=== PATIENT | male | born 1995 | race American Indian/Alaskan Native ===

== ENCOUNTER 2017-06-28 04:39 | Emergency (ER) | payer OTHER ==
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
[2017-06-28] MEDS: MOTRIN PO ONE (10:06)
[2017-06-28] MEDS: FLEXERIL PO ONE (10:06)
[2017-06-28 10:59] VITALS: BP 127/77
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
== END 2017-06-28 11:15 | disposition home or self-care (01) ==
LOC: ED 04:39
DX: S60.042A Contusion of left ring finger without damage to nail, initial encounter (principal); M25.50 Pain in unspecified joint; M54.2 Cervicalgia; S60.812A Abrasion of left wrist, initial encounter; S60.312A Abrasion of left thumb, initial encounter; V49.59XA Passenger injured in collision with other motor vehicles in traffic accident, initial encounter; Y93.9 Activity, unspecified; Y92.9 Unspecified place or not applicable; Y99.9 Unspecified external cause status
CPT/HCPCS: 99282